=== PATIENT | female | born 1945 | race Two or more races ===

== ENCOUNTER 2018-09-11 09:15 | Inpatient (IN) | payer OTHER ==
[~2018-09-11] VITALS: Ht 152.4 cm; Wt 59.0 kg
[2018-09-11] MEDS ORDERED: RESTORIL30 M1 PO (10:18)
[2018-09-11] MEDS ORDERED: GABAPENTIN100 MG PO (10:19)
[2018-09-11] MEDS ORDERED: ATORVASTATIN CA20 MG (10:19)
[2018-09-11] MEDS ORDERED: SYNT PO (10:19)
[2018-09-11] MEDS ORDERED: ZOLOFT50 MG (10:20)
[2018-09-11] MEDS ORDERED: ZANTAC300 MG PO (10:20)
[2018-09-11] MEDS ORDERED: CLONAZEP PO (10:20)
[2018-09-11] MEDS ORDERED: FOSAMAX70 MG PO (10:21)
[2018-09-11] MEDS ORDERED: PROBIOTIC1 EAC2 PO (10:21)
[2018-09-11] MEDS ORDERED: ARICEPT5 MG PO (10:21)
[2018-09-11] MEDS ORDERED: INDERAL PO (10:21)
[2018-09-18] MEDS ORDERED: CLONAZEPAM0.5 MG PO (09:32)
[2018-09-18] MEDS ORDERED: LEVOTHYROXINE25 MCG PO (09:32)
[2018-09-18] MEDS ORDERED: PROPRANOLOL HCL10 MG PO (09:38)
[2018-09-20] MEDS ORDERED: PERCOCET 5-3251 EACH PO (14:13)
[2018-09-20] MEDS ORDERED: DUI500 PO (14:13)
[2018-09-20] MEDS ORDERED: ELIQUIS2.5 MG PO (14:13)
== END 2018-09-20 16:13 | disposition home or self-care (01) | DRG 470 ==
LOC: O/R 09-18 05:54 → SURG 09-18 05:54 → SURH 09-18 09:15 → SURG 09-18 15:20
PROVIDERS: ADMIT Orthopaedic Surgery
PROC: 0SNC0ZZ Release Right Knee Joint, Open Approach (ICD-10-PCS; 2018-09-18)
PROC: 0SRC0JZ Replacement of Right Knee Joint with Synthetic Substitute, Open Approach (ICD-10-PCS; principal; 2018-09-18 12:00)
DX: T84.032A Mechanical loosening of internal right knee prosthetic joint, initial encounter (principal); D62 Acute posthemorrhagic anemia; M17.11 Unilateral primary osteoarthritis, right knee; M81.0 Age-related osteoporosis without current pathological fracture; G30.8 Other Alzheimer's disease; F02.80 Dementia in other diseases classified elsewhere, unspecified severity, without behavioral disturbance, psychotic disturbance, mood disturbance, and anxiety; I49.8 Other specified cardiac arrhythmias; I10 Essential (primary) hypertension; E03.8 Other specified hypothyroidism; Z96.651 Presence of right artificial knee joint